=== PATIENT | female | born 1965 | race Caucasian/White ===

== ENCOUNTER → 2018-02-27 15:15 | Outpatient (CLI) | payer BC, MEDICARE, SELFPAY ==
--- NOTE | 2018-02-27 15:20 | MM_ITS ---
MM Dig screening mamm BI w/CAD ORDERING PHYSICIAN : Mic Lawson MD PATIENT AGE: 53 years GENDER: Female COMPARISON: A July 2009 from [place] INDICATION: ITS.REASON: SCREENING routine screening. Does taking female hormones. No complaints. Noncontributory family history. TECHNIQUE: Standard CC and MLO images were obtained. R2 CAD reviewed. FINDINGS: . Pathology right. Lower density breast last fatty replacement with minimal residual fibroglandular elements. There is been further regression of fibrolinear elements since prior studies 2008. Overall architecture stable with no new dominant mass nor suspicious calcifications. No significant new findings. Bilateral follow-up in one year adequate Stable mild asymmetry . Some minimal asymmetric densities in the right retroareolar region appears similar to the previous 2009 study. Follow-up one year adequate CAD Computer-assisted review identifies no areas of concern either IMPRESSION: Stable bilateral mammogram. Follow-up one year recommended. Stable mild asymmetry BI-RADS Category: 2 Benign Finding(s) RECOMMENDED FOLLOW-UP: 1YR 1 YEAR FOLLOW-UP (A letter has been sent to the patient regarding results of the study.)
== END ==
PROVIDERS: Family Provider Internal Medicine Adolescent Medicine; PCP Internal Medicine Adolescent Medicine; Visit Provider Internal Medicine Adolescent Medicine
DX: Z12.31 Encounter for screening mammogram for malignant neoplasm of breast (principal); Z13.820 Encounter for screening for osteoporosis; Z78.0 Asymptomatic menopausal state
CPT/HCPCS: 77067

== ENCOUNTER → 2018-03-05 15:12 | Outpatient (CLI) | payer BC, MEDICARE, SELFPAY ==
--- NOTE | 2018-03-05 15:15 | XR_ITS ---
XR DEXA axial skeleton HISTORY: ITS.REASON: ASYMPTOMATIC MENOPAUSAL ORDERING PHYSICIAN: Mic Lawson MD PATIENT AGE: 53 years COMPARISON: 725 and 11 FINDINGS: The BMD measured at the Right femoral neck is 0.834 g/cm squared with a T score of -1.5. This is considered Osteopenic according to the World Health Organization criteria. Fracture risk is Moderate. Treatment is advised. The mean hip density has decreased by 10% compared to the previous exam IMPRESSION: Osteopenia with moderate fracture risk. Treatment recommended. Recommend follow-up exam February 2020
== END ==
PROVIDERS: Family Provider Internal Medicine Adolescent Medicine; PCP Internal Medicine Adolescent Medicine; Visit Provider Internal Medicine Adolescent Medicine
DX: Z12.31 Encounter for screening mammogram for malignant neoplasm of breast (principal); Z13.820 Encounter for screening for osteoporosis; Z78.0 Asymptomatic menopausal state
CPT/HCPCS: 77080

== ENCOUNTER → 2018-09-14 16:04 | Outpatient (CLI) | payer BC, MEDICARE, SELFPAY ==
--- NOTE | 2018-09-14 | XR_ITS ---
XR knee RT 3V HISTORY: ITS.REASON: RT KNEE PAIN ORDERING PHYSICIAN: Mic Lawson MD PATIENT AGE: 53 years COMPARISON: None FINDINGS: No fracture or dislocation. No lytic or blastic change. Normal mineralization. There is slight decrease in the joint space medially and laterally with minimal osteophyte formation. Osteophytes are also present at patellofemoral joint. IMPRESSION: Mild osteoarthritis of the right knee
--- NOTE | 2018-09-14 16:12 | XR_ITS ---
XR hip LT 2-3V w/pelvis HISTORY: ITS.REASON: HIP PAIN ORDERING PHYSICIAN: Mic Lawson MD PATIENT AGE: 53 years COMPARISON: None FINDINGS: No fracture or dislocation is evident. There are minimal osteoarthritic changes of the left hip. There is some minimal sclerosis along the lateral aspect of the femoral head nonspecific. No bony destructive process. Phleboliths are noted overlying the obturator foramen. IMPRESSION: Mild osteoarthritis of the left hip There is some mild osteosclerosis along the lateral aspect of the femoral head. This may be seen with femoral acetabular impingement
--- NOTE | 2018-09-14 16:12 | XR_ITS ---
XR hip RT 2-3V w/pelvis HISTORY: ITS.REASON: HIP PAIN ORDERING PHYSICIAN: Mic Lawson MD PATIENT AGE: 53 years COMPARISON: None FINDINGS: No fracture or dislocation. There are minimal osteoarthritic changes of the hips. Degenerative disc disease is present at the lumbosacral junction. Bilateral phleboliths are present in the obturator foramen. IMPRESSION: Minimal osteoarthritic change of the right hip
== END ==
PROVIDERS: PCP Internal Medicine Adolescent Medicine; Visit Provider Internal Medicine Adolescent Medicine
DX: M25.552 Pain in left hip (principal); M25.561 Pain in right knee
CPT/HCPCS: 73502; 73562

== ENCOUNTER → 2019-10-15 08:46 | Outpatient (CLI) | payer BC, MEDICARE, SELFPAY ==
--- NOTE | 2019-10-15 08:48 | MR_ITS ---
PROCEDURE: MR HIP LT WO CON CLINICAL INDICATION: LEFT HIP PAIN Left hip pain COMPARISON: HIPCMLT XR hip LT 2-3V w/pelvis from 09/14/2018 TECHNIQUE: Routine multiplanar multi echo sequences are performed without gadolinium enhancement. FINDINGS: There are mild osteoarthritic changes of the left hip with slight decrease in the joint space and mild osteophyte formation of the femoral head and acetabulum. There is a small left-sided hip joint effusion. No evidence of avascular necrosis. Sagittal images suggest anterior labral tear. This is nondisplaced. There is increased T2 signal involving the left gluteus mary anne medially near the ischial tuberosity. IMPRESSION: 1. No evidence of avascular necrosis. 2. Mild osteoarthritic changes of the left hip with small knee joint effusion. 3. Possible anterior labral tear of the hip. MRI arthrogram may confirm. 4. Increased T2 signal of the gluteus mary anne muscle on the left at the ischial tuberosity region. This is nonspecific and could be related to some underlying bursitis or even partial muscular tear. Dictated by: Faraz Diaz MD 10/16/2019 13:13 Electronically signed by Faraz Diaz MD in [place] 10/16/2019 13:13
== END ==
PROVIDERS: PCP Internal Medicine Adolescent Medicine; Visit Provider Internal Medicine Adolescent Medicine
DX: M25.552 Pain in left hip (principal)
CPT/HCPCS: 73721

== ENCOUNTER → 2020-01-01 08:25 | Outpatient (CLI) | payer BC, MEDICARE, SELFPAY ==
[2020-01-01 08:40] LABS: Microscopic, Urine URINE MICROSCOPIC (MICROSCOPIC)
--- NOTE | 2020-01-01 09:01 | XR_ITS ---
PROCEDURE: XR CHEST 2V CLINICAL HISTORY: HYPERVITAMINOSIS D COMPARISON: TSP THORACIC SPINE-3V SWIMMERS from 03/05/2014 FINDINGS: The cardiomediastinal silhouette and pulmonary vascularity are within normal limits. Again noted is mild aortic tortuosity. The lungs are clear without infiltrates, suspicious nodules, or pleural effusions. There is mild to moderate dextroscoliotic curvature of the lower thoracic spine. The 2 metallic rods are again seen overlying the thoracic spine the longer lizzy extending below the field of view but probably at least to the L5 level there is discontinuity of the upper portion of the long lizzy which has been noted previously. No acute bony abnormalities. IMPRESSION: No acute findings. Dictated by: Dr. Rancho Tijerina MD 01/01/2020 14:[address] Rancho Tijerina MD in [place] 01/01/2020 14:28
[2020-01-01 09:09] LABS: Appearance,Urine CLEAR (Clear); Bilirubin,Urine Negative (Negative); Blood, Urine TRACE-I (Negative); Color,Urine DK YELLOW (Yellow); Glucose,Urine (UA) Negative (Negative); Ketones,Urine Negative (Negative); Leukocyte Esterase,Urine Negative (Negative); Nitrate,Urine Negative (Negative); Protein,Urine Negative (Negative); Specific Gravity, Urine >= 1.030 (1.005-1.030); Urobilinogen,Urine 0.2 EU/dl (0.2)
[2020-01-01 09:24] LABS: Bacteria,Urine Trace /lpf; Mucus,Urine 1+ /lpf
[2020-01-02 12:25] LABS: Calcium, Urine 23.9 mg/dL (Not Estab.)
== END ==
PROVIDERS: Visit Provider Internal Medicine Adolescent Medicine
DX: E67.3 Hypervitaminosis D (principal)
CPT/HCPCS: 71046; 81001; 82340

== ENCOUNTER → 2020-01-03 16:24 | Outpatient (CLI) | payer BC, MEDICARE, SELFPAY ==
[2020-01-03 16:42] LABS: Basophils # 0.1 K/mm3 (0-0.2); Basophils % 0.8 % (0.1-2.0); Eosinophils # 0.1 K/mm3 (0.0-0.4); Eosinophils % 1.2 % (0.1-12.0); Hematocrit 41.4 % (37.0-47.0); Hemoglobin 13.7 g/dL (12.2-16.2); Lymphocytes # 2.1 K/mm3 (0.7-4.5); Lymphocytes % 26.6 % (10-50); Mean Corpuscular HGB Conc 33.2 g/dL (31.8-35.4); Mean Corpuscular Hemoglobin 32.1 pg (27.0-31.2); Mean Corpuscular Volume 96.5 fl (81-99); Mean Platelet Volume 7.4 fl (7.4-10.4); Monocytes # 0.4 K/mm3 (0.1-1.0); Monocytes % 5.6 % (1.7-9.3); Neutrophils # 5.2 K/mm3 (1.8-7.8); Platelet Count 243 K/mm3 (142-424); Red Blood Count 4.28 M/mm3 (4.20-5.40); Red Cell Distribution Width 13.8 % (11.5-17.5)
[2020-01-03 18:56] LABS: Chloride 108 mmol/L (98-107); Sodium 140 mmol/L (136-145)
[2020-01-03 18:57] LABS: Potassium 4.1 mmoL/L (3.5-5.1)
[2020-01-03 18:59] LABS: Alanine Aminotransferase 30 U/L (12-78); Alkaline Phosphatase 68 U/L (38-126); Anion Gap 14.1 mEq/L (5-15); Aspartate Amino Transferase 33 U/L (14-36); Bilirubin,Total 0.5 mg/dl (0.2-1.3); Blood Urea Nitrogen 17 mg/dl (7-17); Carbon Dioxide 22 mmol/L (22.0-30.0); Estimated Glomerular Filt Rate 52 ml/min (>60); GFR (African American) 63 ML/MIN (>60)
[2020-01-03 19:00] LABS: Albumin Level 4.4 g/dl (3.5-5.0); Albumin/Globulin Ratio 1.6 (1.1-1.8); Calcium 10.2 mg/dl (8.4-10.2); Globulin 2.7 g/dL (1.3-3.2); Glucose 89 mg/dl (74-100); Total Protein,Serum 7.1 g/dl (6.3-8.2)
[2020-01-07 02:31] LABS: Angiotensin Converting Enzyme 38 U/L (14-82); Calcium, Ionized 5.5 mg/dL (4.5-5.6)
== END ==
PROVIDERS: Visit Provider Internal Medicine Adolescent Medicine
DX: E67.3 Hypervitaminosis D (principal)
CPT/HCPCS: 36415; 80053; 82164; 82330; 82652; 85025

== ENCOUNTER → 2020-05-07 14:39 | Outpatient (CLI) | payer BC, MEDICARE, SELFPAY ==
--- NOTE | 2020-05-07 | MR_ITS ---
PROCEDURE: MR LUMBAR SPINE WO CON CLINICAL INDICATION: DDD SCOLIOSIS AND FLAT BACK SYNDROME PT. has hx of scoliosis with fraire rods. she states she has ddd and flat back syndrome. C/o chronic pain with no know hx of recent injury. Prior l-spine xray 06/17/2015 COMPARISON: CR LS5 LUMBAR SPINE 5 VIEWS from 06/17/2015 TECHNIQUE: Standard multiplanar multiecho sequences are performed without contrast. 3-D MIP and myelographic images are also rendered and reviewed FINDINGS: The there is mild levoscoliosis of the lumbar spine measuring 16 degrees. Artifact is present from Fraire rods. This is most severe at the L4-5 level. Spinal cord ends at the L1 level. There is mild kyphosis of the lower lumbar spine. T12-L1: Unremarkable. L1-L2: Unremarkable. L2-L3: Mild facet hypertrophic change on the right. L3-L4: No obvious disc herniation. The posterior elements and canal are obscured by artifact. L4-5: Obscured by artifact. L5-S1: There is mild retrolisthesis of L5 of 3 mm with bulging disc along with facet ligamentum hypertrophy. There is severe bilateral foraminal narrowing. 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 IMPRESSION: 1. Significant artifact from the Fraire lizzy obscuring the disc spaces at L 4 L5 and posteriorly at L3-L4. 2. There is mild retrolisthesis of L5 on S1 of 3 mm with bulging disc along with facet and ligamentum hypertrophy. There is severe bilateral foraminal narrowing. Dictated by: Faraz Diaz MD 05/10/2020 10:51 Faraz Diaz MD in [place] 05/10/2020 10:51
--- NOTE | 2020-05-07 16:16 | XR_ITS ---
PROCEDURE: XR SCOLIOSIS SURVEY CLINICAL INDICATION: SCOLIOSIS DEGENERATIVE THORACOLUMBAR, LOW BACK PAIN COMPARISON: CR TSP THORACIC SPINE-3V SWIMMERS from 03/05/2014 CR LS5 LUMBAR SPINE 5 VIEWS from 03/05/2014 CR TSP THORACIC SPINE-3V SWIMMERS from 06/17/2015 FINDINGS: The teen scoliotic curvature of the thoracic and lumbar spine with dextroscoliotic curvature of the thoracic spine from T1 to T12 measuring 25 degrees. There is levo scoliotic curvature between superior endplate of T12 and the superior superior endplate of L5 measuring 23 degrees. The long head return lizzy is seen extending from the body of L5 to the T7 level. There is fracture of the lizzy at this level unchanged in appearance from the previous study with a 6 mm gap between the long segment and smaller superior segment of the Fraire lizzy. Second shorter Fraire lizzy is seen projecting along the right side of the thoracic spine and this appears to be intact. There may have been slightly increased amount of scoliotic curvature in the thoracic region since the previous study and 2014 but no more than a couple of degrees. There is narrowing and sclerosis of the L5-S1 disc space. There is a total hip prosthesis left-side. There is minor sclerosis of the right SI joint IMPRESSION: Serpentine scoliotic curvature thoracic and lumbar spine stable fractured long Fraire lizzy mild interval progression of degenerate disc disease L5-S1 since the previous study Dictated by: Dr. Rancho Tijerina MD 05/08/2020 08:38 Dr. Rancho Tijerina MD in [place] 05/08/2020 08:38
== END ==
PROVIDERS: PCP Internal Medicine Adolescent Medicine; Visit Provider Neurological Surgery
DX: M41.85 Other forms of scoliosis, thoracolumbar region (principal); M54.5 Low back pain
CPT/HCPCS: 72081; 72148; 76376

== ENCOUNTER → 2020-05-14 16:22 | Outpatient (CLI) | payer BC, MEDICARE, SELFPAY ==
--- NOTE | 2020-05-14 16:30 | XR_ITS ---
PROCEDURE: XR SCOLIOSIS SURVEY CLINICAL INDICATION: SCOLIOSIS DEGENERATIVE THORACOLUMBAR . Fraire rods are present as described on the AP view with a broad in the upper and midthoracic spine. A lizzy is present in the mid and lower and spot but op COMPARISON: CR TSP THORACIC SPINE-3V SWIMMERS from 06/17/2015 CR XR SCOLIOSIS SURVEY from 05/07/2020 FINDINGS: Fraire rods are present as described on the AP view with a lizzy in the upper and midthoracic spine which is best detected on the AP view and a lizzy in the mid and lower thoracic spine and upper and mid lumbar spine. There is good alignment on the lateral view. There is degenerative disc disease at L4-5 and L5-S1. IMPRESSION: Fraire rods present as described above. Good alignment in the lateral view. Dictated by: Faraz Diaz MD 05/15/2020 14:49 Faraz Diaz MD in [place] 05/15/2020 14:49
== END ==
PROVIDERS: PCP Internal Medicine Adolescent Medicine
DX: M41.85 Other forms of scoliosis, thoracolumbar region (principal)
CPT/HCPCS: 72081

== ENCOUNTER → 2020-06-11 13:00 | Outpatient (CLI) | payer BC, MEDICARE, SELFPAY ==
--- NOTE | 2020-06-11 13:03 | XR_ITS ---
PROCEDURE: XR DEXA AXIAL SKELETON CLINICAL HISTORY: POST MENOPAUSAL COMPARISON: CR DEXAAX XR DEXA axial skeleton from 03/05/2018 FINDINGS: The right hip BMD is 0.620 with a T-score of -2.1. The left forearm BMD is 0.692 with a T-score of 0.0. IMPRESSION: This patient is considered osteopenic according to the World Health Organization criteria. Bone density is between 10 and 25 percent below young normal. Fracture risk is moderate. Treatment is advised. Previously the bone density has a T-score of -1.5 in the right femoral neck. Based on these results a follow-up exam is recommended in 2 year. Dictated by: Faraz Diaz MD 06/12/2020 07:53 Faraz Diaz MD in [place] 06/12/2020 07:53
== END ==
PROVIDERS: PCP Internal Medicine Adolescent Medicine; Visit Provider Neurological Surgery
DX: M41.9 Scoliosis, unspecified (principal); Z78.0 Asymptomatic menopausal state
CPT/HCPCS: 77080

== ENCOUNTER 2020-09-05 04:05 | Inpatient (IN) | payer BC, MEDICARE, SELFPAY ==
[2020-09-05] VITALS (15 sets, daily range): BP systolic 107–150; BP diastolic 75–85; PULSE 66–98; RESP 20–45; TEMP 36.5–36.8; O2SAT 77–99; BMI 29.2; BMI 30.5
--- NOTE | 2020-09-05 04:16 | XR_ITS ---
PROCEDURE: XR CHEST PORTABLE Referring Doctor: Petros Harrington Patient Age:55Y CLINICAL HISTORY: shortness of air Covd 19 COMPARISON: CR XR CHEST 2V from 01/01/[address] ANGIO CHEST from 09/05/2020 FINDINGS: . patchy bilateral infiltrates throughout lung dietrich bilaterally . Left lung: There is a slightly peripheral distribution of the infiltrates extending from the upper-mid to the lower lung field. With patchy infiltrate in the left perihilar region extending laterally into the left midlung Right lung. Primarily peripheral distribution infiltrate all along the far lateral aspect of the right lung of right mid lung and right lung base with patchy infiltrate right lung base. Elevation right hemidiaphragm is more pronounced than previous studies. The heart is normal to upper normal size. Aruna and mediastinal structures stable. Patient with of prominent dextroscoliosis thoracic spine and levoscoliosis at the thoracolumbar junction with associated a postsurgical changes and metallic rods at the spine that were used to treat the scoliosis . Only question some scant blunting left CP angle. Possible scant pleural fluid IMPRESSION: Diffuse patchy bilateral infiltrates. These are mainly distributed throughout along the peripheral aspect of the lung dietrich bilaterally Additional patchy infiltrate/atelectasis right lung base associated more pronounced elevation right hemidiaphragm today Dictated by: Benjamín Bran MD 09/05/2020 10:58 Benjamín Bran MD in [place] 09/05/2020 10:58
[2020-09-05 04:20] LABS: ABG Base Excess -2.3 mmol/L (-2.4-2.3); ABG HCO3 21.2 mmhg (22.0-26.0); ABG Oxygen Saturation 84 % (90-100); ABG PCO2 29.3 mmhg (35.0-45.0); ABG PH 7.48 mmol/L (7.35-7.45); ABG TCO2 22.1 mmhg (23-27)
[2020-09-05 04:21] LABS: Allen's Test Acceptable; Oxygen 4L NC %; Source Right Radial
[2020-09-05 04:22] LABS: ABG PO2 44.6 mmhg (80-100)
--- NOTE | 2020-09-05 04:23 | ECG_ITS ---
APPROVED REPORT Exam: Resting ECG HR:83 bpm ECG Measurements Heart Rate 83 AXES UT 148 P 55 QRSd 82 QRS 63 QT 384 T 71 QTc 451 Conclusion Normal sinus rhythm Normal ECG Electronically signed by : Mic Lawson, 09/05/2020 14:15:10
[2020-09-05 04:28] LABS: Basophils % 0.3 % (0.1-2.0); Hematocrit 43.2 % (37.0-47.0); Hemoglobin 13.8 g/dL (12.2-16.2); Lymphocytes # 1.6 K/mm3 (0.7-4.5); Lymphocytes % 12.8 % (10-50); Mean Corpuscular Hemoglobin 30.4 pg (27.0-31.2); Mean Platelet Volume 7.6 fl (7.4-10.4); Monocytes # 0.3 K/mm3 (0.1-1.0); Monocytes % 2.5 % (1.7-9.3); Neutrophils # 10.3 K/mm3 (1.8-7.8); Neutrophils % 84.2 % (37.0-80.0); Platelet Count 361 K/mm3 (142-424); Red Blood Count 4.55 M/mm3 (4.20-5.40); Red Cell Distribution Width 14.2 % (11.5-17.5); White Blood Count 12.3 K/mm3 (4.8-10.8)
[2020-09-05 04:30] LABS: Adenovirus,PCR Not Detected (NotDetected); Bordetella Pertussis Not Detected (NotDetected); Chlamydophila Pneumoniae, PCR Not Detected (NotDetected); Coronavirus 229E Not Detected (NotDetected); Coronavirus NL63 Not Detected (NotDetected); Coronavirus OC43 Not Detected (NotDetected); Coronovirus HKU1,PCR Not Detected (NotDetected); Human Metapneumovirus Not Detected (NotDetected); Influenza A, PCR Not Detected (NotDetected); Influenza AH1, 2009 Not Detected (NotDetected); Influenza AH1, PCR Not Detected (NotDetected); Influenza AH3,PCR Not Detected (NotDetected); Influenza B, PCR Not Detected (NotDetected); Mycoplasma Pneumoniae, PCR Not Detected (NotDetected); Parainfluenza 1, PCR Not Detected (NotDetected); Parainfluenza 2, PCR Not Detected (NotDetected); Parainfluenza 3, PCR Not Detected (NotDetected); Parainfluenza 4, PCR Not Detected (NotDetected); Respiratory Syncytial Virus Not Detected (NotDetected); Rhinovirus/Enterovirus Not Detected (NotDetected)
[2020-09-05 04:45] LABS: Alanine Aminotransferase 60 U/L (12-78); Albumin Level 3.6 g/dl (3.5-5.0); Alkaline Phosphatase 87 U/L (38-126); Aspartate Amino Transferase 46 U/L (14-36); Bilirubin,Direct 0.2 mg/dl (0.0-0.4); Bilirubin,Indirect 0.3 mg/dL (0.0-0.9); Bilirubin,Total 0.5 mg/dl (0.2-1.3); Bilirubin,Unconjugated 0.2 mg/dL (0.0-1.1); Blood Urea Nitrogen 26 mg/dl (7-17); Calcium 9.3 mg/dl (8.4-10.2); Carbon Dioxide 27 mmol/L (22.0-30.0); Chloride 102 mmol/L (98-107); Creatinine Clearance Estimated 81 mL/min (50-200); Estimated Glomerular Filt Rate 65 ml/min (>60); GFR (African American) 79 ML/MIN (>60); Glucose 121 mg/dl (74-100); Lactic Acid 1.7 mmol/L (0.7-2.1); Sodium 138 mmol/L (136-145); Total Protein,Serum 7.5 g/dl (6.3-8.2)
--- NOTE | 2020-09-05 04:48 | HMH.EDSOB ---
ED Disposition Clinical Impression: Pneumonia due to COVID-19 virus Respiratory failure with hypoxia Qualifiers: Chronicity: acute Qualified Code(s): J96.01 - Acute respiratory failure with hypoxia Disposition: Admitted As Inpatient Condition on Discharge: Serious Referrals: Mic Lawson MD [Primary Care Provider] - - Critical Care Critical Care Time: No Attestation: On 09/05/20, the high probability of a clinically significant, sudden or life threatening deterioration of the following system(s) required my full and direct attention, intervention and personal management. The time I documented below is in addition to time spent performing reported procedures but includes the following listed in this critical care notation. Medical Decision Making - Medical Records Medical records reviewed: Yes: I reviewed the patient's medical records. - [place] Inquiry Pt receiving controlled substance: No Vital Signs: 09/05/20 04:23 09/05/20 05:06 09/05/20 06:07 Temperature 98.1 F Temperature Source Oral Pulse Rate [Right] 94 H 90 83 Respiratory Rate 34 H 45 H 24 Blood Pressure [Right Arm] 150/84 H 115/80 130/78 Blood Pressure Mean [Right Arm] 106 91 95 Blood Pressure Source [Right Arm] Automatic Cuff Automatic Cuff Automatic Cuff Blood Pressure Position [Right Arm] Supine Supine Supine 02 Sat by Pulse Oximetry 77 L 90 L 88 L Oxygen Delivery Method Room Air Nasal Cannula Nasal Cannula Oxygen Flow Rate (LPM) 4 4 09/05/20 06:30 Temperature Temperature Source Pulse Rate [Right] 82 Respiratory Rate 21 Blood Pressure [Right Arm] 121/79 Blood Pressure Mean [Right Arm] 93 Blood Pressure Source [Right Arm] Automatic Cuff Blood Pressure Position [Right Arm] Sitting 02 Sat by Pulse Oximetry 90 L Oxygen Delivery Method Nasal Cannula Oxygen Flow Rate (LPM) 4 - Lab Data Lab results reviewed: Yes: I reviewed the patient's lab results. Lab Results 09/05/20 04:15: WBC 12.3 H, RBC 4.55, Hgb 13.8, Hct 43.2, MCV 95.0, MCH 30.4, MCHC 32.0, RDW 14.2, Plt Count 361, MPV 7.6, Neut % (Auto) 84.2 H, Lymph % (Auto) 12.8, [place] % (Auto) 2.5, Eos % (Auto) 0.0 L, Baso % (Auto) 0.3, Neut # (Auto) 10.3 H, Lymph # (Auto) 1.6, [place] # (Auto) 0.3, Eos # (Auto) 0.0, Baso # (Auto) 0.0, ESR 118 H 09/05/20 04:15: Sodium 138, Potassium 4.0, Chloride 102, Carbon Dioxide 27, Anion Gap 13.0, BUN 26 H, Creatinine 0.90, Estimated Creat Clear 81, Estimated GFR 65, Est GFR ( Amer) 79, Glucose 121 H, Calcium 9.3, Total Bilirubin 0.5, Direct Bilirubin 0.2, Conjugated Bilirubin 0.0, Indirect Bilirubin 0.3, Unconjugated Bilirubin 0.2, AST 46 H, ALT 60, Alkaline Phosphatase 87, Troponin I < 0.01, C-Reactive Protein 155.3 H, NT-Pro-B Natriuret Pep 152 H, Total Protein 7.5, Albumin 3.6, Procalcitonin 0.153, TSH 0.89, Thyroxine (T4) 7.7 09/05/20 04:15: Lactate 1.7 09/05/20 04:15: Chlamy pneumoniae PCR Not detected, Adenovirus (PCR) Not detected, B. pertussis DNA (PCR) Not detected, Coronavirus OC43 (PCR) Not detected, Coronavirus HKU1 (PCR) Not detected, Coronavirus 229E (PCR) Not detected, SARS-CoV-2 (PCR) Detected A, Coronavirus NL63 (PCR) Not detected, Human Metapneumovir PCR Not detected, Influenza A (H1) PCR Not detected, Influ A (H1N1/09) PCR Not detected, Influenza A (H3) PCR Not detected, Influenza Type A (PCR) Not detected, Influenza Type B (PCR) Not detected, M. pneumoniae (PCR) Not detected, Parainfluenza 1 (PCR) Not detected, Parainfluenza 2 (PCR) Not detected, Parainfluenza 3 (PCR) Not detected, Parainfluenza 4 (PCR) Not detected, RSV (PCR) Not detected, Entero/Rhino (PCR) Not detected 09/05/20 04:15: SARS-CoV-2 IgG Ab (Rapid) Positive A, SARS-CoV-2 IgM Ab (Rapid) Negative 09/05/20 04:17: Specimen Source Right radial, O2 % 4l nc, ABG pH 7.48 H, ABG pCO2 29.3 L, ABG pO2 44.6 L, ABG HCO3 21.2 L, ABG Total CO2 22.1 L, ABG O2 Saturation 84 L*, ABG Base Excess -2.3, Faraz Test Acceptable 09/05/20 05:35: Urine Color Yellow, Urine Appearance Clear, Urine pH 7.0
[2020-09-05 04:50] LABS: C-Reactive Protein 155.3 mg/L (0-4)
[2020-09-05 05:00] LABS: Erythrocyte Sedimentation Rate 118 mm/hr (0-30); NT Pro Brain Natriuretic Pep. 152 pg/mL (0-125)
--- NOTE | 2020-09-05 05:01 | CT_ITS ---
PROCEDURE: CT ANGIO CHEST Referring Doctor: Petros Harrington Patient Age:55Y CLINCIAL INDICATION: shortness of air. Hypoxia. The CoviD 19 positive symptoms 1 week 55-year-old dilatation from severe scoliosis, osteoporosis COMPARISON: CR XR CHEST 2V from 01/01/2020 CR XR CHEST PORTABLE from 09/05/2020 TECHNIQUE: IV Contrast: 70ML Isovue 370 bolus followed by 40 mL normal saline Helical axial images obtained with thick slab MIP sagittal and coronal reformats on CT workstation. All CT scans at the facility use one or more dose reduction, viz: automated exposure control, ma/kV adjustment per patient size (including targeted exams where dose is matched to indication, i.e. head), or iterative reconstruction technique. FINDINGS: PULMONARY ARTERIES: No a good evidence of pulmonary embolus evident. The smaller vessels towards the lung bases are less well visualized due to some some streak artifact from metal in the spine and motion but no good evidence of pulmonary embolism.. Also note that there is more optimal enhancement of the aorta than the pulmonary artery AORTA: No acute finding. No thoracic aortic aneurysm or dissection evident LUNGS: Multifocal diffuse scattered ground-glass and airspace opacities both lung dietrich involving all lobes. Most focal area of infiltrate and atelectasis seen at the periphery of the right lower lung field associated with atelectasis and air bronchograms as seen on axial images 53--43 associated with some additional elevation the right hemidiaphragm today. Overall these patchy infiltrates have a slight peripheral distribution. Today's findings appear to be superimposed upon background of some the chronic lung changes PLEURAL SPACES: Only scant pleural fluid at the posterior lung bases. Barely appreciable.. No pneumothorax. HEART: Borderline cardiomegaly. no significant pericardial effusion. MEDIASTINAL AND HILAR STRUCTURES: No mediastinal or hilar mass evident. No dominant adenopathy . Hiatal hernia noted BONY STRUCTURES: No acute bony abnormalities apparent. The pronounced scoliosis and postsurgical changes with compression and distraction rods LYMPH NODES: No pathologically enlarged lymph nodes evident. UPPER ABDOMEN: . Cholecystectomy.. Diffuse fatty changes of liver IMPRESSION: 1..No definite CT evidence of pulmonary embolism.. . Fairly good visualization pulmonary arteries 2..Diffuse bilateral patchy multifocal pneumonia throughout lung dietrich bilaterally. The fairly extensive patchy infiltrates appears to be superimposed upon some chronic lung changes (pattern would be compatible with CoviD 19. Correlation required) 3..Other nonacute observations in text:. -Small hiatal hernia noted -pronounced scoliosis with postsurgical changes spine -fatty changes liver Dictated by: Benjamín Bran MD 09/05/2020 10:14 Benjamín Bran MD in [place] 09/05/2020 10:14
[2020-09-05 05:03] LABS: Coronavirus 19 IgG Antibody Positive (Negative); Coronavirus 19 IgM Antibody Negative (Negative); Troponin I < 0.01 ng/ml (0.00-0.034)
[2020-09-05 05:05] LABS: Procalcitonin 0.153 ng/mL (0.0-2.0); T4 (Thyroxine) 7.7 ug/dl (5.53-11.0)
[2020-09-05 05:18] LABS: Thyroid Stimulating Hormone 0.89 uIU/mL (0.465-4.68)
[2020-09-05 05:42] LABS: Microscopic, Urine URINE MICROSCOPIC (MICROSCOPIC)
[2020-09-05 05:45] LABS: Appearance,Urine CLEAR (Clear); Bilirubin,Urine Negative (Negative); Blood, Urine Negative (Negative); Color,Urine YELLOW (Yellow); Glucose,Urine (UA) Negative (Negative); Ketones,Urine 1+ (Negative); Leukocyte Esterase,Urine Negative (Negative); Nitrate,Urine POSITIVE (Negative); Protein,Urine TRACE (Negative); Specific Gravity, Urine 1.015 (1.005-1.030)
[2020-09-05 05:48] LABS: Bacteria,Urine 4+ /lpf; Squamous Epithelial Cell,Urine Occasional #/hpf (0-5)
[2020-09-05 06:04] LABS: Coronavirus 19, PCR Detected (NotDetected)
--- NOTE | 2020-09-05 06:58 | PC.NURSE ---
was updated on pt results and condition, he went home
--- NOTE | 2020-09-05 06:59 | PC.NURSE ---
Password set by as SNAP
--- NOTE | 2020-09-05 08:15 | HMH.HP ---
*Admission Date: 09/05/20 *Chief complaint: Shortness of air *History of present illness: 55-year-old white female, debilitated from severe scoliosis and osteoporosis whose came down with a Covid-like illness a couple of weeks ago, followed by her symptoms approximately 7 days ago, treated with azithromycin and dexamethasone with minimal improvement but over the past couple of days has become increasingly short of air and dyspneic. Came to the emergency department early this morning, found to be in significant hypoxia with respiratory failure. Blood gas showed no hypercapnia. Admitted to ICU with Vapotherm with fairly good response to high flow oxygen at this point. [facility] History Medical History: Reports:: Osteoporosis Denies:: Diabetes Mellitus Type 1, Diabetes Mellitus Type 2, Internal Pacemaker, Lung Disease, Seizures *Have you ever received a pneumonia vaccine?: No *Have you received a flu vaccine this season?: No Other Medical History: Reports: Other (Trigeminal neuralgia) Other Surgeries: Yes: Cholecystectomy, Other (Back sx). No: Pacemaker Amputation: No Fractures: No - *Social History Smoking Status: Never smoker Alcohol Intake: never *Occupational Status:: employed *Travel in the last 8 weeks: None Family Hx:: Other (NA) Review of Systems - Review of Systems Review of systems:: pertinent systems reviewed and negative unless documented below Patient has no pains, no chest pains. No GI symptoms. Poor p.o. intake. Respiratory issues as noted, otherwise 10 point review of systems negative - *Neurologic Reports weakness, Denies seizure-like activity Meds Home Medications Medication Instructions Recorded Confirmed Type Dextroamphetamine/Amphetamine 10 mg PO DAILY 10/16/18 09/05/20 History [Adderall 10 mg Tablet] Gabapentin [Neurontin 800mg Tab] 800 mg PO TID 10/16/18 09/05/20 History Magnesium Oxide [Magnesium] 250 mg PO DAILY 10/16/18 09/05/20 History buPROPion HCL [Wellbutrin Xl] 300 mg PO DAILY 10/16/18 09/05/20 History Eszopiclone [Lunesta] 1 mg PO HS 10/19/18 09/05/20 History Azithromycin 250 mg PO DAILY 09/05/20 09/05/20 History dexAMETHasone [Decadron 4mg tablet] 4 mg PO DAILY 09/05/20 09/05/20 History Allergies Allergy/AdvReac Type Severity Reaction Status Date / Time No Known Allergies Allergy Verified 10/19/18 09:04 Exam Vital signs and Labs for Last 24 Hours: Temp Pulse Resp BP Pulse Ox 98 F 98 H 32 H 112/75 99 09/05/20 07:58 09/05/20 07:58 09/05/20 07:58 09/05/20 07:58 09/05/20 07:46 Laboratory Results - last 24 hr 09/05/20 04:15: WBC 12.3 H, RBC 4.55, Hgb 13.8, Hct 43.2, MCV 95.0, MCH 30.4, MCHC 32.0, RDW 14.2, Plt Count 361, MPV 7.6, Neut % (Auto) 84.2 H, Lymph % (Auto) 12.8, [place] % (Auto) 2.5, Eos % (Auto) 0.0 L, Baso % (Auto) 0.3, Neut # (Auto) 10.3 H, Lymph # (Auto) 1.6, [place] # (Auto) 0.3, Eos # (Auto) 0.0, Baso # (Auto) 0.0, ESR 118 H 09/05/20 04:15: Sodium 138, Potassium 4.0, Chloride 102, Carbon Dioxide 27, Anion Gap 13.0, BUN 26 H, Creatinine 0.90, Estimated Creat Clear 81, Estimated GFR 65, Est GFR ( Amer) 79, Glucose 121 H, Calcium 9.3, Total Bilirubin 0.5, Direct Bilirubin 0.2, Conjugated Bilirubin 0.0, Indirect Bilirubin 0.3, Unconjugated Bilirubin 0.2, AST 46 H, ALT 60, Alkaline Phosphatase 87, Troponin I < 0.01, C-Reactive Protein 155.3 H, NT-Pro-B Natriuret Pep 152 H, Total Protein 7.5, Albumin 3.6, Procalcitonin 0.153, TSH 0.89, Thyroxine (T4) 7.7 09/05/20 04:15: Lactate 1.7 09/05/20 04:15: Chlamy pneumoniae PCR Not detected, Adenovirus (PCR) Not detected, B. pertussis DNA (PCR) Not detected, Coronavirus OC43 (PCR) Not detected, Coronavirus HKU1 (PCR) Not detected, Coronavirus 229E (PCR) Not detected, SARS-CoV-2 (PCR) Detected A, Coronavirus NL63 (PCR) Not detected, Human Metapneumovir PCR Not detected, Influenza A (H1) PCR Not detected, Influ A (H1N1/09) PCR Not detected, Influenza A (H3) PCR Not detected, Influenza Type A (PCR) Not detecte
--- NOTE | 2020-09-05 18:10 | PC.NURSE ---
shift note: new admit this morning. Pt has done well today. Vapotherm has been weaned down to 30L/50%. O2 sat will drop to 80s when she takes cannula off to wipe nose. Sats immediately return to high 90s when cannula placed. She has been A&O. Denies pain. Appetite is fair. Has castrejon cath with good UOP. She is able to turn herself in bed. No other issues noted.
[2020-09-06] VITALS (9 sets, daily range): BP systolic 111–125; BP diastolic 67–83; PULSE 56–82; RESP 18–23; TEMP 36–36.9; O2SAT 92–100; BMI 32.0
--- NOTE | 2020-09-06 02:54 | PC.NURSE ---
Pt remains on Vapotherm 30 L @ 50%. Has tolerated well. Lung dietrich diminished with expiratory rhonchi noted. Pt has desat in 80s with activity. Has been restless this shift at times. Has not been able to get comfortable in bed. Pt given bedbath. Fan placed in room for comfort. Ice pack behind neck and wash cloth for head. Pt c/o f/c leaking. Urine noted to underpad. F/C assessed. No additional leaking noted. Pt has stated concerns of home medications. She states she hasn't had her gabapentin for a few days. She also would like medication for sleep. Pt c/o dry eyes and would like eye drops. VSS at this time. Medications administered per mar. Will continue to monitor.
[2020-09-06 06:34] LABS: Basophils % 0.3 % (0.1-2.0); Eosinophils % 0.2 % (0.1-12.0); Hematocrit 41.1 % (37.0-47.0); Lymphocytes # 2.1 K/mm3 (0.7-4.5); Lymphocytes % 15.6 % (10-50); Mean Corpuscular HGB Conc 31.7 g/dL (31.8-35.4); Mean Corpuscular Hemoglobin 30.1 pg (27.0-31.2); Mean Corpuscular Volume 94.9 fl (81-99); Mean Platelet Volume 7.8 fl (7.4-10.4); Monocytes # 0.5 K/mm3 (0.1-1.0); Monocytes % 3.6 % (1.7-9.3); Neutrophils # 10.8 K/mm3 (1.8-7.8); Neutrophils % 80.3 % (37.0-80.0); Platelet Count 375 K/mm3 (142-424); Red Blood Count 4.33 M/mm3 (4.20-5.40); Red Cell Distribution Width 14.4 % (11.5-17.5); White Blood Count 13.5 K/mm3 (4.8-10.8)
[2020-09-06 06:59] LABS: Chloride 106 mmol/L (98-107); Sodium 139 mmol/L (136-145)
[2020-09-06 07:02] LABS: Blood Urea Nitrogen 18 mg/dl (7-17); Calcium 8.9 mg/dl (8.4-10.2); Carbon Dioxide 26 mmol/L (22.0-30.0); Creatinine Clearance Estimated 99 mL/min (50-200); Estimated Glomerular Filt Rate 74 ml/min (>60); GFR (African American) 90 ML/MIN (>60); Glucose 132 mg/dl (74-100)
--- NOTE | 2020-09-06 08:37 | P.PN_ITS ---
Internal Medicine - PN: Subj *Date: 09/06/20 *Time: 08:37 Interval history: Patient did fairly well overnight, Vapotherm settings have been able to be weaned down to 30 L, at 50% FiO2. She feels comfortable, although notes that her trigeminal neuralgia has been flaring up as she is not taking her gabapentin for a couple of days. Good urine output in Guillory catheter. No abdominal pain, no nausea, has been able to eat about 50% of her diet. Exam Vital signs and Labs for Last 24 Hours: Temp Pulse Resp BP Pulse Ox 97.3 F L 74 19 121/83 93 L 09/06/20 08:00 09/06/20 08:00 09/06/20 08:00 09/06/20 08:00 09/06/20 08:00 Laboratory Results - last 24 hr 09/05/20 05:35: Urine Color Yellow, Urine Appearance Clear, Urine pH 7.0, Ur Specific [place] 1.015, Urine Protein Trace, Urine Glucose (UA) Negative, Urine Ketones 1+, Urine Blood Negative, Urine Nitrate Positive, Urine Bilirubin Negative, Urine Urobilinogen 2.0, Ur Leukocyte Esterase Negative, Urine WBC 3-5, Ur Squamous Epith Cells Occasional, Urine Bacteria 4+ 09/06/20 05:55: WBC 13.5 H, RBC 4.33, Hgb 13.0, Hct 41.1, MCV 94.9, MCH 30.1, MCHC 31.7 L, RDW 14.4, Plt Count 375, MPV 7.8, Neut % (Auto) 80.3 H, Lymph % (Auto) 15.6, [place] % (Auto) 3.6, Eos % (Auto) 0.2, Baso % (Auto) 0.3, Neut # (Auto) 10.8 H, Lymph # (Auto) 2.1, [place] # (Auto) 0.5, Eos # (Auto) 0.0, Baso # (Auto) 0.0 09/06/20 05:55: Sodium 139, Potassium 4.0, Chloride 106, Carbon Dioxide 26, Anion Gap 11.0, BUN 18 H D, Creatinine 0.80, Estimated Creat Clear 99, Estimated GFR 74, Est GFR ( Amer) 90, Glucose 132 H, Calcium 8.9 I & O for Last 24 hours: Intake & Output 09/03/20 09/04/20 09/05/20 09/06/20 11:59 11:59 11:59 11:59 Intake Total 360 / 360 2285 / 2285 Output Total 2800 / 2800 Balance 360 / 360 -515 / -515 Weight 167 lb 174 lb 1.6 oz Microbiology Reports for the Last 24 Hours: Microbiology 09/05/20 05:35 Urine,Catheterized Urine Culture - Preliminary Gram Negative Rods Narrative: Alert, oriented. Guillory catheter draining clear yellow urine. No neurologic deficits. No rash. Abdomen soft. Lungs have much better air entry, rhonchorous in the bases but otherwise no crackles. Heart rate regular. No gallops or murmurs or rubs. Assessment and Plan (1) Pneumonia due to COVID-19 virus Status: Acute Category: Medical Code(s): U07.1 - COVID-19; J12.82 - Pneumonia due to coronavirus disease 2019 (2) Respiratory failure with hypoxia Status: Acute Qualifiers: Chronicity: acute Qualified Code(s): J96.01 - Acute respiratory failure with hypoxia Category: Medical Code(s): J96.91 - Respiratory failure, unspecified with hyp oxia - Assessment and plan all Dx Assessment and Plan for all problems:: Restart some of her home medications today. Echo tomorrow given elevated BNP on presentation. Continue supportive care, remdesivir, steroids. Continue to titrate oxygen down. Remove Guillory catheter. Up in the chair today. Please note 30 minutes critical care time including record review, ordering test, consulting with patient
--- NOTE | 2020-09-06 08:54 | PC.NURSE ---
Dr. Lawson rounded and reordered home meds, an echo for tomorrow morning, and to d/c castrejon catheter. Castrejon discontinued and pt ambulated to bathroom with standby assistance. Vapotherm switched to 7L NC for her to transport to bathroom.
--- NOTE | 2020-09-06 09:09 | PC.NURSE ---
Pt had a large BM in the toilet. Sats dropped to mid 80s on 7L NC. Sats immediately increased to high 90s when placed back on Vapotherm 30L/50%. Pt now sitting in the chair.
--- NOTE | 2020-09-06 17:56 | PC.NURSE ---
shift note: pt has been stable this shift. Has been in the chair since early this AM. Tolerates ambulating to the restroom on 7L NC. Had 2 BMs today. No longer has castrejon cath. Home meds have been restarted. Family brought in her Lunesta for pharmacy to [facility] tomorrow. Appetite remains poor. Is currently on Vapotherm 30L/50% with sats in the high 90s. Has been NSR and normotensive entire shift.
--- NOTE | 2020-09-06 18:37 | PC.NURSE ---
RT (S. Sweet) decreased Vapotherm to 25L/45%. Pt tolerating change well. O2 sat remains 97%.
--- NOTE | 2020-09-06 22:37 | PC.NURSE ---
Spoke with Claude Fournier about pt concerned about missing Lunesta again tonight. Medication verified with pharmacy. Medication counted with Karan Bill and locked up in medication director of instrumental music room.
[2020-09-07] VITALS (10 sets, daily range): BP systolic 102–126; BP diastolic 67–82; PULSE 58–91; RESP 15–26; TEMP 36.1–36.6; O2SAT 82–99; BMI 32.0
--- NOTE | 2020-09-07 03:00 | PC.NURSE ---
Pt is currently resting in chair. Has slept at intervals this shift. Has ambulated to BR with assist x1 and tolerated well with O2 NC. Has voided 3x. Stress incontinence noted. She is currently on Vapotherm 20 L @ 45%. Lungs diminished t/o. Pt has coughed frequently t/o night. Nonproductive. VSS. Medications administered per oct. Will continue to monitor.
[2020-09-07 06:22] LABS: Basophils % 0.2 % (0.1-2.0); Hemoglobin 11.9 g/dL (12.2-16.2); Lymphocytes % 15.4 % (10-50); Mean Corpuscular HGB Conc 32.1 g/dL (31.8-35.4); Mean Corpuscular Hemoglobin 30.8 pg (27.0-31.2); Mean Corpuscular Volume 95.8 fl (81-99); Mean Platelet Volume 7.6 fl (7.4-10.4); Monocytes # 0.6 K/mm3 (0.1-1.0); Monocytes % 4.4 % (1.7-9.3); Neutrophils # 10.5 K/mm3 (1.8-7.8); Platelet Count 371 K/mm3 (142-424); Red Blood Count 3.86 M/mm3 (4.20-5.40); Red Cell Distribution Width 14.5 % (11.5-17.5); White Blood Count 13.2 K/mm3 (4.8-10.8)
[2020-09-07 06:46] LABS: Alanine Aminotransferase 47 U/L (12-78); Alkaline Phosphatase 62 U/L (38-126); Anion Gap 8.3 mEq/L (5-15); Aspartate Amino Transferase 34 U/L (14-36); Bilirubin,Total 0.3 mg/dl (0.2-1.3); Blood Urea Nitrogen 17 mg/dl (7-17); Calcium 8.7 mg/dl (8.4-10.2); Carbon Dioxide 26 mmol/L (22.0-30.0); Chloride 108 mmol/L (98-107); Creatinine Clearance Estimated 99 mL/min (50-200); Estimated Glomerular Filt Rate 74 ml/min (>60); GFR (African American) 90 ML/MIN (>60); Glucose 129 mg/dl (74-100); Potassium 4.3 mmoL/L (3.5-5.1); Sodium 138 mmol/L (136-145)
--- NOTE | 2020-09-07 08:00 | CA_ITS ---
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 CRT Ht: 5 ft 1 in Wt: 174lbs BSA: 1.78 BP: 110/70 mmHg Indications: Covid, CHF, Afib, COPD, Diabetes, Hyperlipidemia, Hypertension/HDD, home O2 2D Dimensions LVOT 1.86 cm (M/F) 1.5-2.5 M-Mode Dimensions RVDd 2.96 cm (0.9-2.6) LA Diam 3.12 cm (1.9-4.0) LVDd 4.01 cm (3.5-5.7) Ao Diam 3.12 cm (2.0-3.7) LVDs 1.95 cm (3.5-5.7) IVSd 1.13 cm (0.6-1.1) PWd 1.02 cm (0.6-1.1) EF (Teich) 83.10% FS 51.40% EDV (Teich) 70.40 mL ESV (Teich) 11.90 mL LV Diastology E Decel Time 410.00 (160-240 msec) E/A Ratio 0.73 MED E' 8.40 (< 7 cm/sec) MED A' 11.50 cm/s E'/MED E' Ratio 7.93 (>14) LAT E' 7.50 (<10 cm/sec) LAT A' 14.50 cm/s E/LAT E' Ratio 8.88 (>14) Aortic Valve AO Peak GR. 10.00 mmHg Mitral Valve MV A Velocity 91.00 (40-130 cm/s) E/A Ratio 0.73 MV Decel. Time 410.00 (160-240 ms) Pulmonary Valve PV Peak Velocity 101.00 (50-150 cm/s) Tricuspid Valve TR P. Velocity 260.00 cm/s RAP Estimate 10.00 mmHg RVSP 37.10 mmHg Left Ventricle Left atrium is mildly enlarged, left ventricle is normal size, mild concentric left ventricular hypertrophy, visually estimated ejection fraction 55% with no regional wall motion abnormality, grade 1 diastolic dysfunction seen with tissue Doppler evidence of raise left atrial pressure. Right Ventricle Right atrium and right ventricle are mildly enlarged with normal contractility. Aortic Valve Aortic valve is minimally thickened and fibrosed, there is no aortic stenosis or aortic insufficiency. Mitral Valve Mitral valve is grossly normal, there is mild mitral regurgitation. Tricuspid Valve Tricuspid valve grossly normal, there is mild tricuspid regurgitation, calculated right ventricular systolic pressure is 37 mmHg. Pulmonic Valve Pulmonic valve is poorly visualized. Great Vessels Aortic root is normal size. Pericardium No significant pericardial effusion noted. Conclusion 1. Mild biatrial enlargement, normal left ventricular size, mild concentric left ventricular hypertrophy, visually estimated ejection fraction 55% with no regional wall motion abnormality, grade 1 diastolic dysfunction seen with tissue Doppler evidence of raise left atrial pressure. 2. Mildly enlarged right ventricle with normal contractility. 3. Mild mitral and tricuspid regurgitation. 4. No significant pericardial effusion noted. Electronically signed by : Quentin Rhodes, 09/07/2020 19:38:19
--- NOTE | 2020-09-07 08:14 | P.PN_ITS ---
Internal Medicine - PN: Subj *Date: 09/07/20 *Time: 08:14 Interval history: Patient is improved over the past 24 hours, has been able to ambulate to the bathroom. Does desaturate when she is on nasal cannula but does well on the Vapotherm and has been weaned down to 20 L/percent on the Vapotherm device. Preliminary echo report looks like normal ejection fraction. Exam Vital signs and Labs for Last 24 Hours: Temp Pulse Resp BP Pulse Ox 96.9 F L 61 19 103/76 L 96 09/07/20 04:00 09/07/20 04:00 09/07/20 04:00 09/07/20 04:00 09/07/20 06:48 Laboratory Results - last 24 hr 09/07/20 05:55: Sodium 138, Potassium 4.3, Chloride 108 H, Carbon Dioxide 26, Anion Gap 8.3, BUN 17, Creatinine 0.80, Estimated Creat Clear 99, Estimated GFR 74, Est GFR ( Amer) 90, Glucose 129 H, Calcium 8.7, Total Bilirubin 0.3, AST 34 D, ALT 47, Alkaline Phosphatase 62, Total Protein 6.0 L, Albumin 3.0 L, Globulin 3.0, Albumin/Globulin Ratio 1.0 L 09/07/20 05:55: WBC 13.2 H, RBC 3.86 L, Hgb 11.9 L, Hct 37.0, MCV 95.8, MCH 30.8, MCHC 32.1, RDW 14.5, Plt Count 371, MPV 7.6, Neut % (Auto) 80.0, Lymph % (Auto) 15.4, [place] % (Auto) 4.4, Eos % (Auto) 0.0 L, Baso % (Auto) 0.2, Neut # (Auto) 10.5 H, Lymph # (Auto) 2.0, [place] # (Auto) 0.6, Eos # (Auto) 0.0, Baso # (Auto) 0.0 I & O for Last 24 hours: Intake & Output 09/04/20 09/05/20 09/06/20 09/07/20 11:59 11:59 11:59 11:59 Intake Total 360 / 360 2645 / 2645 1541 / 1541 Output Total 3500 / 3500 Balance 360 / 360 -855 / -855 1541 / 1541 Weight 167 lb 174 lb 1.6 oz 174 lb 1.585 oz Microbiology Reports for the Last 24 Hours: Microbiology 09/05/20 05:35 Urine,Catheterized Urine Culture - Final Escherichia coli 09/05/20 04:15 Blood Blood Culture - Preliminary NO GROWTH AFTER 48 HOURS 09/05/20 04:15 Blood Blood Culture - Preliminary NO GROWTH AFTER 48 HOURS Narrative: Patient with some rhonchi in the bases but is able to take a much bigger breath. Heart rate regular. No edema, no rash, neurologically intact. Oropharynx clear. Assessment and Plan (1) Pneumonia due to COVID-19 virus Status: Acute Category: Medical Code(s): U07.1 - COVID-19; J12.82 - Pneumonia due to coronavirus disease 2019 (2) Respiratory failure with hypoxia Status: Acute Qualifiers: Chronicity: acute Qualified Code(s): J96.01 - Acute respiratory failure with hypoxia Category: Medical Code(s): J96.91 - Respiratory failure, unspecified with hypoxia - Assessment and plan all Dx Assessment and Plan for all problems:: Good improvement, reassuringly normal ejection fraction. Continue standard care for viral pneumonia from COVID-19. PT/OT evaluation. Continue to wean oxygen. Remains in intensive care. Please note 30 minutes critical care time.
--- NOTE | 2020-09-07 09:09 | HMH.OTEV ---
OT Inpatient Evaluation Rehab OT IP Evaluation Start: 09/07/20 08:13 Freq: ONCE Status: Complete Protocol: Document 09/07/20 09:02 FIONAKENIA (Rec: 09/07/20 09:09 SAMDENNY [id number]) Rehab OT IP Assessment Subjective History 55-year-old white female, debilitated from severe scoliosis and osteoporosis whose came down with a Covid-like illness a couple of weeks ago, followed by her symptoms approximately 7 days ago, treated with azithromycin and dexamethasone with minimal improvement but over the past couple of days has become increasingly short of air and dyspneic. Does desaturate when she is on nasal cannula but does well on the Vapotherm and has been weaned down to 20 L/percent on the Vapotherm device. Subjective I feel like i'm doing okay. Izabela been walking to the bathroom. Instructed Patient on sit-> stand x5 from recliner requiring SBA. No LOB. However 02 dropped to 75% with requiring ~1 min of recovery. Objective Patient Orientation Person,Place,Time,Name,Age, Year,Situation Upper Extremity Gross ROM WNL Transfer Training Sit/Stand Transfer Assist Level Supervision/Stand by Chair Transfer Ability Supervision/Stand by Chair Transfer Technique Sit to/from Ambulatory Chair Transfer Assistive Devices None Rehab OT IP prob,goals,plan Problems Date of Evaluation: 09/07/20 OT IP Problems Transfers,Balance,Self care, Safety Rehab Potential Rehab Potential Good Equipment Needs Assistive Devices Rolling / Wheeled Walker Plan OT intervention Plan Bed Mobility,Transfers,Balance ,Self care,Safety,Therapeutic Exercise OT Plan Frequency Daily Duration LOS Discharge Goals Sit to Stand Chair Transfer Ability Independent Chair Transfer Ability Independent Chair Transfer Technique Sit to/from Ambulatory Chair Transfer Assistive Devices None Eval Complexity
--- NOTE | 2020-09-07 09:56 | HMH.PTEV ---
Physical Therapy Evaluation Rehab PT IP Evaluation Start: 09/07/20 08:13 Freq: ONCE Status: Active Protocol: Document 09/07/20 09:53 DIANA (Rec: 09/07/20 09:56 PWCATHY [id number]) Subjective/History History History Mrs. Olmstead is a 55 y/o female admitted to ICU for COVID pneumonia Subjective Subjective pt lives at home w/ spouse - pt reports she was I w/ all ADL's Rehab PT IP Eval Objective Appearance Patient Behavior Appropriate,Cooperative Patient Orientation Person,Place,Time,Situation Difficulty following instructions none Speech Pattern Clear,Appropriate Ambulation Patient Able to Ambulate Yes Ambulation Observation IP General Gait Pattern Observation No Deviations/Normal Ambulation Distance (feet) 15 Ambulation Assistive Device None Ambulation Ability Supervision/Stand by,Contact Guard/Hand Hold Balance Ability to Arise Able, uses arms to help Sitting Balance Steady, safe Standing Balance Narrow stance w/o support Dynamic Sitting Balance Ability Normal Dynamic Standing Balance Ability Good Transfers Chair Transfer Ability Independent Sit to Stand Bed Transfer Ability Independent Sit to Stand Chair Transfer Ability Independent Rehab PT IP prob,goals,plan Problems Date of Evaluation: 09/07/20 PT IP Problems Other Other Pt Problem oxygen saturation, endurance Rehab Potential Rehab Potential Fair Equipment Needs Assistive Devices None / NA Plan PT Intervention Plan Gait,Therapeutic Exercise PT Plan Frequency BID Duration LOS Discharge Goals Ambulation Distance (feet) 20 Discharge Plan PT Discharge Plan once pt is able to maintain therapeutic o2 sats w/ activity pt will be safe to return home G -code Required No Eval Complexity Eval Charge Codes 87201 - Moderate Complexity G Codes PT Current Status Mobility PT Current Status Modifier CJ-At least 20% but less than 40% impaired, limited or restricted PT Goal Status Mobility PT Goal Status Modifer CJ-At least 20% but less than 40% impaired, limited or restricted PHYSICIAN CERTIFICATION: I certify the specified therapy services for Ashlyn Levine
--- NOTE | 2020-09-07 18:28 | PC.NURSE ---
Pt is alert and oriented x4. She has been up to the chair the whole shift. Lungs clear but diminished. She remains on vapotherm 20L 45% fio2 with O2 sats in the low 90's. She is placed on 7L NC when ambulating to the bathroom. She will desat into the 80's but rebounds quickly when placed back on vapotherm. She has a frequent dry, hacking cough. She has been NSR on telemetry. She has refused IV fluids most of the shift. PO intake has been good. Appetite has been good. She reports intermittent abdominal pain and intermittent foot pain. Will continue to monitor.
--- NOTE | 2020-09-07 20:00 | PC.NURSE ---
Pt requested for IV fluids to be SL.
[2020-09-08] VITALS (12 sets, daily range): BP systolic 99–120; BP diastolic 49–86; PULSE 60–114; RESP 17–20; TEMP 36.1–36.8; O2SAT 91–98; BMI 32.0
[2020-09-08 06:07] LABS: Chloride 105 mmol/L (98-107); Potassium 4.3 mmoL/L (3.5-5.1); Sodium 141 mmol/L (136-145)
--- NOTE | 2020-09-08 06:09 | PC.NURSE ---
Pt has not slept well. She states she feels miserable. She has cried some and states she wishes she could go home. She does not like the hospital food. Pt has coughed frequently t/o night. Nonproductive. Has c/o discomfort to mouth, tongue and throat. Pt noted to have some white patchy areas in mouth. IV to LAC was DC after it became dislodged while pt ambulated to BR. A moderate amount of bleeding noted. Pressure dressing was needed to stop bleeding after saturating prior DSG. New IV placed in RAC . VSS. Pt remains on Vapotherm @ 20 L 45%. Medication administered per oct. No other concerns at this time. Will continue to monitor.
[2020-09-08 06:10] LABS: Alanine Aminotransferase 64 U/L (12-78); Albumin Level 3.5 g/dl (3.5-5.0); Albumin/Globulin Ratio 1.1 (1.1-1.8); Alkaline Phosphatase 70 U/L (38-126); Anion Gap 9.3 mEq/L (5-15); Aspartate Amino Transferase 44 U/L (14-36); Bilirubin,Total 0.4 mg/dl (0.2-1.3); Blood Urea Nitrogen 13 mg/dl (7-17); Carbon Dioxide 31 mmol/L (22.0-30.0); Creatinine Clearance Estimated 88 mL/min (50-200); Estimated Glomerular Filt Rate 65 ml/min (>60); GFR (African American) 79 ML/MIN (>60); Globulin 3.3 g/dL (1.3-3.2); Total Protein,Serum 6.8 g/dl (6.3-8.2)
[2020-09-08 06:11] LABS: Calcium 9.3 mg/dl (8.4-10.2); Glucose 151 mg/dl (74-100)
--- NOTE | 2020-09-08 06:46 | HMH.ACPN2 ---
Internal Medicine - PN: Subj *Date: 09/08/20 *Time: 11:11 Interval history: Patient is showing significant improvement on her oxygen requirement. Down to 40% FiO2 on Vapotherm at 20 L a minute. Had worsening anxiety overnight, is very labile with emotions this morning on exam. The small room, inability to take a shower, and underlying baseline anxiety are all worsening her acute nervousness. Denies chest pain, palpitations, nausea or vomiting. Still has quite prominent cough and gets short of breath with any movement. Tolerating fair p.o. fluid intake. Afebrile and hemodynamically stable Exam Vital signs and Labs for Last 24 Hours: Temp Pulse Resp BP Pulse Ox 96.9 F L 77 20 102/57 L 91 L 09/08/20 04:00 09/08/20 04:00 09/08/20 04:00 09/08/20 04:00 09/08/20 04:00 Laboratory Results - last 24 hr 09/07/20 05:55: Sodium 138, Potassium 4.3, Chloride 108 H, Carbon Dioxide 26, Anion Gap 8.3, BUN 17, Creatinine 0.80, Estimated Creat Clear 99, Estimated GFR 74, Est GFR ( Amer) 90, Glucose 129 H, Calcium 8.7, Total Bilirubin 0.3, AST 34 D, ALT 47, Alkaline Phosphatase 62, Total Protein 6.0 L, Albumin 3.0 L, Globulin 3.0, Albumin/Globulin Ratio 1.0 L 09/07/20 05:55: WBC 13.2 H, RBC 3.86 L, Hgb 11.9 L, Hct 37.0, MCV 95.8, MCH 30.8, MCHC 32.1, RDW 14.5, Plt Count 371, MPV 7.6, Neut % (Auto) 80.0, Lymph % (Auto) 15.4, [place] % (Auto) 4.4, Eos % (Auto) 0.0 L, Baso % (Auto) 0.2, Neut # (Auto) 10.5 H, Lymph # (Auto) 2.0, [place] # (Auto) 0.6, Eos # (Auto) 0.0, Baso # (Auto) 0.0 I & O for Last 24 hours: Intake & Output 09/05/20 09/06/20 09/07/20 09/08/20 23:59 23:59 23:59 23:59 Intake Total 1465 / 1465 2841 / 3081 188 / 8 240 / 240 Output Total 1600 / 2800 1900 / 1900 Balance -135 / -1335 941 / 1181 1887 / 2127 240 / 240 Weight 75.75 kg 78.97 kg 79 kg 78.97 kg Microbiology Reports for the Last 24 Hours: Microbiology 09/05/20 05:35 Urine,Catheterized Urine Culture - Final Escherichia coli 09/05/20 04:15 Blood Blood Culture - Preliminary NO GROWTH AFTER 48 HOURS 09/05/20 04:15 Blood Blood Culture - Preliminary NO GROWTH AFTER 48 HOURS - Constitutional mild distress - *Routine HEENT Exam Head: Present: normocephalic Eye: Present: EOMI, PERRL ENT: Present: mucous membranes moist - *Routine Neck Exam Present: supple. Absent: lymphadenopathy - *Routine Respiratory Exam Present: rhonchi Comments: good Air movement bilaterally - *Routine Cardiovascular Exam Present: RRR - *Routine Abdominal Exam Present: soft, normoactive bowel sounds. Absent: tenderness - *Routine Extremities Exam Absent: cyanosis, clubbing, edema - *Routine Skin Exam Present: warm. Absent: rash - *Routine Neurological Exam Present: alert, oriented X3 - Routine Psychiatric Exam Present: normal thought process, anxious Comments: nervous, tearful Assessment and Plan (1) Pneumonia due to COVID-19 virus Status: Acute Category: Medical Code(s): U07.1 - COVID-19; J12.82 - Pneumonia due to coronavirus disease 2019 (2) Respiratory failure with hypoxia Status: Acute Qualifiers: Chronicity: acute Qualified Code(s): J96.01 - Acute respiratory failure with hypoxia Category: Medical Code(s): J96.91 - Respiratory failure, unspecified with hypoxia (3) Obesity, Class I, BMI 30.0-34.9 (see actual BMI) Status: Chronic Category: Medical Code(s): E66.9 - Obesity, unspecified (4) Anxiety Status: Chronic Category: Medical Code(s): F41.9 - Anxiety disorder, unspecified Acute worsening. Will provide Xanax every 12 as needed - Assessment and plan all Dx Assessment and Plan for all problems:: 55-year-old female with acute hypoxemic respiratory failure secondary to COVID-19 pneumonia. Continue Covid protocol with remdesivir, dexamethasone, vitamin supplementation. Prophylactic Lovenox i
[2020-09-08 07:00] LABS: Basophils % 0.2 % (0.1-2.0); Hematocrit 42.1 % (37.0-47.0); Lymphocytes # 1.7 K/mm3 (0.7-4.5); Mean Corpuscular HGB Conc 31.4 g/dL (31.8-35.4); Mean Corpuscular Hemoglobin 30.3 pg (27.0-31.2); Mean Corpuscular Volume 96.5 fl (81-99); Monocytes # 0.6 K/mm3 (0.1-1.0); Monocytes % 4.2 % (1.7-9.3); Neutrophils # 11.9 K/mm3 (1.8-7.8); Neutrophils % 83.6 % (37.0-80.0); Platelet Count 438 K/mm3 (142-424); Red Blood Count 4.36 M/mm3 (4.20-5.40); Red Cell Distribution Width 14.4 % (11.5-17.5); White Blood Count 14.2 K/mm3 (4.8-10.8)
[2020-09-08 07:01] LABS: Hemoglobin 13.2 g/dL (12.2-16.2)
[2020-09-08 11:22] LABS: POC Glucose,Bedside 151 (70-110)
--- NOTE | 2020-09-08 15:07 | PC.NURSE ---
RESPIRATORY THERAPY NOTE: 1510- SPUTUM CUP PLACED AT PT BEDSIDE; SPECIMEN WAS UNABLE TO BE OBTAINED AT THIS TIME.
--- NOTE | 2020-09-08 17:16 | PC.NURSE ---
Pt has been pleasant and somewhat cooperative this shift. A&O X4. No complaints of pain or SOA. Pt had been receiving O2 via Vapotherm @ 6 LPM for the majority of the shift due to her refusal to use the NC. After some coaxing, pt agreed to try to wear it and is currently receiving O2 via NC @ 6 LPM with sats. >90%. Lungs CTA. No edema noted. Skin is C/D/I. Pt ambulates independently to/from the bathroom and throughout the room. Pt voids clear, yellow urine without issue. No BM this shift. Pt refuses IVF. 20 G peripheral IV in the RT AC is patent and SL. Specimen cup is at bedside and pt has been instructed to provide a sputum specimen. VSS. Call light within reach. Will continue to monitor.
[2020-09-09 02:50] VITALS: O2SAT 94
[2020-09-09 03:31] VITALS: BP 145/92; PULSE 73; RESP 18; TEMP 36.4; O2SAT 96
--- NOTE | 2020-09-09 03:37 | PC.NURSE ---
She continues in contact and airborne precautions. She is A&Ox4. She was up in her room earlier in the shift and she fixed her hair and applied toe nail and fingernail [place]. She reports a sore throat but states it is improving. She continues on 5LPM n/c. She has been up in the chair t/o the shift. She did eat some crackers and peanut butter for a snack and drank apple juice.
[2020-09-09 04:00] VITALS: PULSE 100
[2020-09-09 04:41] VITALS: BMI 31.8
[2020-09-09 08:00] VITALS: BP 95/63; PULSE 88; PULSE 90; RESP 24; TEMP 36.7; O2SAT 93
[2020-09-09 08:46] LABS: Basophils % 0.2 % (0.1-2.0); Eosinophils % 0.2 % (0.1-12.0); Hematocrit 37.6 % (37.0-47.0); Hemoglobin 11.8 g/dL (12.2-16.2); Lymphocytes # 1.5 K/mm3 (0.7-4.5); Lymphocytes % 9.3 % (10-50); Mean Corpuscular HGB Conc 31.4 g/dL (31.8-35.4); Mean Corpuscular Hemoglobin 30.4 pg (27.0-31.2); Mean Corpuscular Volume 96.9 fl (81-99); Mean Platelet Volume 9.3 fl (7.4-10.4); Monocytes # 0.7 K/mm3 (0.1-1.0); Monocytes % 4.5 % (1.7-9.3); Neutrophils # 14.2 K/mm3 (1.8-7.8); Neutrophils % 85.9 % (37.0-80.0); Platelet Count 374 K/mm3 (142-424); Red Blood Count 3.88 M/mm3 (4.20-5.40); Red Cell Distribution Width 14.9 % (11.5-17.5); White Blood Count 16.5 K/mm3 (4.8-10.8)
[2020-09-09 08:51] LABS: Chloride 105 mmol/L (98-107); Potassium 4.4 mmoL/L (3.5-5.1); Sodium 138 mmol/L (136-145)
[2020-09-09 08:53] LABS: Alanine Aminotransferase 67 U/L (12-78); Aspartate Amino Transferase 39 U/L (14-36); Blood Urea Nitrogen 17 mg/dl (7-17); Creatinine Clearance Estimated 79 mL/min (50-200); Estimated Glomerular Filt Rate 58 ml/min (>60); GFR (African American) 70 ML/MIN (>60)
[2020-09-09 08:54] LABS: Albumin Level 3.1 g/dl (3.5-5.0); Albumin/Globulin Ratio 1.1 (1.1-1.8); Alkaline Phosphatase 73 U/L (38-126); Anion Gap 8.4 mEq/L (5-15); Bilirubin,Total 0.2 mg/dl (0.2-1.3); Calcium 8.9 mg/dl (8.4-10.2); Carbon Dioxide 29 mmol/L (22.0-30.0); Globulin 2.9 g/dL (1.3-3.2); Glucose 205 mg/dl (74-100)
[2020-09-09 08:55] LABS: Magnesium 1.7 mg/dl (1.6-2.3)
[2020-09-09 09:16] LABS: MANUAL DIFFERENTIAL MANUAL DIFFERENTIAL (MANUAL DIFF)
--- NOTE | 2020-09-09 09:50 | SW/DCPLANNER ---
SET UP HOME 02 FOR THIS PATIENT WHO IS DISCHARGING HOME TODAY... PATIENT WILL HAVE A PORTABLE DELIVERED TO ROOM 266 PRIOR TO HER DISCHARGING... THIS WILL BE DELIVERED BY [facility]...
[2020-09-09 11:26] LABS: Lymphocytes % 7 % (10-50); Monocytes % 2 % (2-9); Neutrophils % 91 % (42-76); Platelet Estimate Normal; RBC Morphology Normal; Total Cells Counted 100
--- NOTE | 2020-09-09 11:37 | [facility].DCSUM ---
General - General Admission date:: 09/05/20 Discharge date: 09/09/20 HPI HPI: 55-year-old white female, debilitated from severe scoliosis and osteoporosis whose came down with a Covid-like illness a couple of weeks ago, followed by her symptoms approximately 7 days ago, treated with azithromycin and dexamethasone with minimal improvement but over the past couple of days has become increasingly short of air and dyspneic. Came to the emergency department early this morning, found to be in significant hypoxia with respiratory failure. Blood gas showed no hypercapnia. Admitted to ICU with Vapotherm with fairly good response to high flow oxygen at this point. Hospital Course Hospital Course: Patient was admitted, high flow Vapotherm oxygen was given along with IV fluids IV steroids, she improved and a very nice and slow but steady stepwise fashion over the next 3 days. Was found to have a UTI, Escherichia coli, pansensitive, responded well to Levaquin. Did develop thrush probably from previous steroid administration from outpatient Covid 19 therapy. By this morning was able to be weaned down to 5 L to 6 L nasal cannula oxygen, she is able to go home with this, feels much better, eating, drinking, normal bowel movements, doing her own activities of daily living. I will follow her up with a tele-health visit on Monday of next week. She will hold Adderall, low-dose alprazolam because of her significant anxiety for a couple of days. Objective Vital signs: Temp Pulse Resp BP Pulse Ox 98.0 F 88 24 95/63 L 93 L 09/09/20 08:00 09/09/20 08:00 09/09/20 08:00 09/09/20 08:00 09/09/20 08:00 no acute distress - *Routine HEENT Exam Head: Present: normocephalic Eye: Present: EOMI, PERRL ENT: Present: mucous membranes moist - *Routine Neck Exam Present: supple - *Routine Respiratory Exam Present: CTA bilaterally, rhonchi (vast improvement) - *Routine Cardiovascular Exam Present: RRR - *Routine Abdominal Exam Present: soft, normoactive bowel sounds. Absent: tenderness - *Routine Extremities Exam Absent: cyanosis, clubbing, edema - Routine Back/Spine/Pelvis Exam Comments: Old scars and kyphosis noted - *Routine Skin Exam Present: warm. Absent: rash - Detailed Eye Exam Eyelids: Bilateral normal inspection Results Labs on day of discharge: Labs from last 24 hours 09/09/20 09/09/20 09/09/20 06:05 06:05 06:05 WBC 16.5 H RBC 3.88 L Hgb 11.8 L Hct 37.6 MCV 96.9 MCH 30.4 MCHC 31.4 L RDW 14.9 Plt Count 374 MPV 9.3 Neut % (Auto) 85.9 H Lymph % (Auto) 9.3 L [place] % (Auto) 4.5 Eos % (Auto) 0.2 Baso % (Auto) 0.2 Neut # (Auto) 14.2 H Lymph # (Auto) 1.5 [place] # (Auto) 0.7 Eos # (Auto) 0.0 Baso # (Auto) 0.0 Total Counted 100 Neutrophils % (Manual) 91 H Lymphocytes % (Manual) 7 L Monocytes % (Manual) 2 Platelet Estimate Normal RBC Morphology Normal Sodium 138 Potassium 4.4 Chloride 105 Carbon Dioxide 29 Anion Gap 8.4 BUN 17 D Creatinine 1.00 Estimated Creat Clear 79 Estimated GFR 58 L Est GFR ( Amer) 70 Glucose 205 H Calcium 8.9 Magnesium 1.7 Total Bilirubin 0.2 AST 39 H ALT 67 Alkaline Phosphatase 73 Total Protein 6.0 L Albumin 3.1 L D Globulin 2.9 Albumin/Globulin Ratio 1.1 Preliminary micro results at discharge 09/05/20 04:15 Blood Culture - Preliminary Blood NO GROWTH AFTER 48 HOURS 09/05/20 04:15 Blood Culture - Preliminary Blood NO GROWTH AFTER 48 HOURS DS: Diagnosis - Discharge Diagnosis (1) Pneumonia due to COVID-19 virus Status: Acute (2) Respiratory failure with hypoxia Status: Acute (3) Obesity, Class I, BMI 30.0-34.9 (see actual BMI) Status: Chronic (4) Anxiety Status: Chronic Discharge Plan - Patient Discharge Instructions ACTIVITY: Limited activity,
[2020-09-09 12:00] VITALS: BP 114/77; PULSE 64; PULSE 90; RESP 23; TEMP 36.8; O2SAT 96
== END 2020-09-09 15:15 | disposition home or self-care (01) | DRG 177 ==
LOC: ER 04:15 → ICU 07:12
PROVIDERS: Internal Medicine Adolescent Medicine; Admitting Provider Internal Medicine Adolescent Medicine; Emergency Provider Emergency Medicine; PCP Internal Medicine Adolescent Medicine; Visit Provider Internal Medicine Adolescent Medicine
DX: U07.1 COVID-19 (principal); J12.82 Pneumonia due to coronavirus disease 2019; J96.01 Acute respiratory failure with hypoxia; N39.0 Urinary tract infection, site not specified; B37.0 Candidal stomatitis; Z79.899 Other long term (current) drug therapy
CPT/HCPCS: 71045; 71275; 80048; 80053; 80076; 81001; 82803; 82962; 83605; 83735; 83880; 84145; 84436; 84443; 84484; 85007; 85025; 85651; 86140; 86328; 87040; 87086; 87088; 87186; 87581; 87633; 87798; 93005; 93306; 94760; 94761; 96365; 96375; 97110; 97116; 97162; 97165; 99285; J2405; Q9967